=== PATIENT | male | born 1975 | race Caucasian/White ===

== ENCOUNTER 2021-09-05 12:44 | Emergency (ER) | payer BC ==
[~2021-09-05] VITALS: Ht 180.3 cm; Wt 96.2 kg
--- NOTE | 2021-09-05 12:44 | NUR ---
PT BIB SELF C/O LEFT SIDED FLANK PAIN, DARK COLORED URINE NOTED SINCE THIS MORNING. PT IS AAOX4. NOT IN RESPIRATORY DISTRESS, V/S STABLE, KEPT RESTED AND COMFORTABLE. WILL CONTINUE TO MONITOR.
[2021-09-05] MEDS ORDERED: IV NS 0.9% 500 ML BAG IV ONE (13:00)
[2021-09-05] MEDS ORDERED: KETOROLAC TROMETHAMINE INJ 30 MG/ML VIAL IV ONE (13:00)
--- NOTE | 2021-09-05 13:00 | NUR ---
IV LINE ESTABLISHED BLOOD DRAWN AND SENT TO LAB.
[2021-09-05] MEDS ORDERED: KETOROLAC TROMETHAMINE 15 MG/ML VIAL ONE (13:02)
--- NOTE | 2021-09-05 13:06 | NUR ---
PT IS WHEELED TO CT SCAN VIA WHEELCHAIR.
[2021-09-05 13:26] LABS: BASOPHILS % (AUTO) 0.2 % (0.0-2.0); EOSINOPHILS % (AUTO) 0.8 % (0.0-6.0); HEMATOCRIT 40 % (39-51); HEMOGLOBIN 13.4 g/dL (13.5-17.5); LYMPHOCYTES # (AUTO) 1.1 K/uL (0.8-4.8); LYMPHOCYTES % (AUTO) 9.9 % (20.0-44.0); MEAN CORPUSCULAR HGB CONC 34 g/dl (31.0-36.0); MEAN CORPUSCULAR VOLUME 100 fL (80-96); MONOCYTES # (AUTO) 0.8 K/uL (0.1-1.30); MONOCYTES % (AUTO) 6.6 % (2.0-12.0); NEUTROPHILS # (AUTO) 9.3 K/uL (1.8-8.9); NEUTROPHILS % (AUTO) 82.5 % (43.0-81.0); PLATELET COUNT (AUTO) 272 K/uL (150-450); RED BLOOD CELL COUNT(AUTO) 3.97 MIL/uL (4.5-6.0); WHITE BLOOD COUNT (AUTO) 11.3 K/uL (4.3-11.0)
[2021-09-05 13:45] LABS: ALBUMIN 3.8 g/dL (3.4-5.0); BILIRUBIN,DIRECT 0.2 mg/dL (0.0-0.2); BILIRUBIN,TOTAL 1.3 mg/dL (0.2-1.0); CALCIUM, SERUM 8.5 mg/dL (8.5-10.1); POTASSIUM 3.7 mmol/L (3.5-5.1); TOTAL PROTEIN, SERUM 7.7 g/dL (6.4-8.2)
[2021-09-05] MEDS ORDERED: TAMS-12 PO (13:55)
[2021-09-05] MEDS ORDERED: IBUP-1955 PO (13:55)
--- NOTE | 2021-09-05 14:30 | NUR ---
IV removed. Catheter intact and site benign. Pressure and 4x4 applied to site. No bleeding noted. Patient discharged to home in stable condition. Written and verbal after care instructions given. Patient verbalizes understanding of instruction.
[2021-09-05 14:31] VITALS: BP 131/82
== END 2021-09-05 14:31 | disposition home or self-care (01) ==
LOC: ER 12:49
DX: N13.2 Hydronephrosis with renal and ureteral calculous obstruction (principal); Z88.0 Allergy status to penicillin
CPT/HCPCS: 36415; 74176; 80048; 80076; 83690; 85025; 96374; 99284; J1885; J7040; J7030

== ENCOUNTER 2021-11-24 22:34 | Emergency (ER) | payer BC ==
[~2021-11-24] VITALS: Ht 180.3 cm; Wt 86.2 kg
[~2021-11-24 22:34] MED LIST: IBUP-1955 PO; TAMS-12 PO
[2021-11-24] MEDS ORDERED: IV NS 0.9% 1,000 ML BAG IV ONE (23:30)
[2021-11-24] MEDS ORDERED: ONDANSETRON HCL/PF 4 MG/2 ML VIAL IVP ONE (23:30)
[2021-11-24] MEDS ORDERED: KETOROLAC TROMETHAMINE INJ 30 MG/ML VIAL IV ONE (23:30)
[2021-11-24] MEDS ORDERED: KETOROLAC TROMETHAMINE 15 MG/ML VIAL ONE (23:31)
[2021-11-24] MEDS ORDERED: ONDANSETRON HCL/PF 4 MG/2 ML VIAL ONE (23:31)
--- NOTE | 2021-11-24 23:35 | NUR ---
BIBS FOR C/O WORSENING L FLANK PAIN x3 DAYS. REPORTS HX OF L RENAL STONES A FEW MONTHS PRIOR. -N/V. PT AWAKE AND ALERT X4 AMBULATORY WITH STEADY GAIT BREATHING EVEN AND UNLABORED. CHANGED INTO GOWN AND PLACED ON MONITOR AND V/S WNL.
--- NOTE | 2021-11-24 23:40 | NUR ---
URINE COLLECTED AND SENT TO LAB
--- NOTE | 2021-11-24 23:48 | NUR ---
RAC #[id number] S/L; BLOOD COLLECTED AND SENT TO LAB
[2021-11-24 23:51] LABS: BASOPHILS % (AUTO) 0.7 % (0.0-2.0); EOSINOPHILS % (AUTO) 6.5 % (0.0-6.0); HEMATOCRIT 37 % (39-51); HEMOGLOBIN 12.8 g/dL (13.5-17.5); LYMPHOCYTES # (AUTO) 2.1 K/uL (0.8-4.8); LYMPHOCYTES % (AUTO) 36.8 % (20.0-44.0); MEAN CORPUSCULAR HGB CONC 35 g/dl (31.0-36.0); MEAN CORPUSCULAR VOLUME 100 fL (80-96); MONOCYTES # (AUTO) 0.6 K/uL (0.1-1.30); MONOCYTES % (AUTO) 10.2 % (2.0-12.0); NEUTROPHILS # (AUTO) 2.7 K/uL (1.8-8.9); NEUTROPHILS % (AUTO) 45.8 % (43.0-81.0); PLATELET COUNT (AUTO) 249 K/uL (150-450); RED BLOOD CELL COUNT(AUTO) 3.69 MIL/uL (4.5-6.0); WHITE BLOOD COUNT (AUTO) 5.8 K/uL (4.3-11.0)
[2021-11-24 23:57] LABS: BILIRUBIN,URINE NEGATIVE (NEGATIVE); COLOR,URINE YELLOW (YELLOW); LEUKOCYTE ESTERASE ,URINE NEGATIVE (NEGATIVE); NITRITE, URINE NEGATIVE (NEGATIVE); PROTEIN,URINE 30 mg/dl (NEGATIVE); UGLUCOSE NEGATIVE (NEGATIVE); UROBILINOGEN,URINE 0.2 EU/dL (0.2)
[2021-11-25] MEDS ORDERED: IV NS 0.9% 250 ML IV ONE (00:05)
[2021-11-25] MEDS ORDERED: IOHEXOL-300 100 ML VIAL IV ONE (00:05)
[2021-11-25 00:10] LABS: CALCIUM, SERUM 8.7 mg/dL (8.5-10.1); CREATININE 1.1 mg/dL (0.6-1.3); POTASSIUM 3.5 mmol/L (3.5-5.1)
[2021-11-25 00:11] LABS: ALBUMIN 3.9 g/dL (3.4-5.0); BILIRUBIN,DIRECT 0.2 mg/dL (0.0-0.2); TOTAL PROTEIN, SERUM 7.8 g/dL (6.4-8.2)
--- NOTE | 2021-11-25 00:30 | NUR ---
PT TAKEN TO CT VIA STACE[facility]
--- NOTE | 2021-11-25 01:50 | NUR ---
MEDEICALLY STABLE FOR D/C PER MD. IV removed. Catheter intact and site benign. Pressure and 4x4 applied to site. No bleeding noted.Patient discharged to home in stable condition. Written and verbal after care instructions given. Patient verbalizes understanding of instruction.
[2021-11-25 02:09] VITALS: BP 137/83
[2021-11-25 07:44] LABS: BACTERIA,URINE Rare /HPF (None Seen); RBC,URINE 0-2 /HPF (0-2); WBC,URINE 0-2 /HPF (0-3)
[2021-11-25 07:45] LABS: SQUAMOUS EPITHELIAL CELL,UR Few /HPF (None Seen); URINE AMORPHOUS URATE Moderate /HPF (None Seen)
== END 2021-11-25 01:50 | disposition admitted as inpatient to this hospital (09) ==
LOC: ER 22:37
DX: M54.50 Low back pain, unspecified (principal); M10.9 Gout, unspecified; Z88.0 Allergy status to penicillin
CPT/HCPCS: 36415; 74177; 80048; 80076; 81001; 83690; 85025; 96361; 96374; 96375; 99285; J1885; J2405; J7030; J7050; Q9967

== ENCOUNTER 2021-12-04 11:14 | Emergency (ER) | payer BC ==
[~2021-12-04] VITALS: Ht 180.3 cm; Wt 86.2 kg
--- NOTE | 2021-12-04 11:37 | NUR ---
low back pain x 7 days; no fall or trauma
[2021-12-04] MEDS ORDERED: HYDROCODONE/APAP 10/325MG TABLET ONE (12:07)
[2021-12-04] MEDS ORDERED: KETOROLAC TROMETHAMINE INJ 30 MG/ML VIAL ONE (12:07)
[2021-12-04] MEDS: KETOROLAC TROMETHAMINE INJ 60 MG/2 ML VIAL IM ONE (12:20)
[2021-12-04] MEDS: HYDROCODONE/APAP 10/325MG TABLET PO ONE (12:21)
[2021-12-04] MEDS ORDERED: NAPR-1164 PO (13:16)
[2021-12-04] MEDS ORDERED: CYCL10TA9 PO (13:16)
--- NOTE | 2021-12-04 13:23 | NUR ---
Patient discharged to home in stable condition. Written and verbal after care instructions given. Patient verbalizes understanding of instruction.
[2021-12-04 13:24] VITALS: BP 138/91
== END 2021-12-04 13:24 | disposition home or self-care (01) ==
LOC: EDUNIT# 11:14 → ER 11:21
DX: M54.50 Low back pain, unspecified (principal); M10.9 Gout, unspecified; Z88.0 Allergy status to penicillin
CPT/HCPCS: 96372; 99283; J1885

== ENCOUNTER 2022-07-20 09:29 | Emergency (ER) | payer BC ==
[~2022-07-20] VITALS: Ht 177.8 cm; Wt 83.9 kg
[~2022-07-20 09:29] MED LIST changes: +CYCL10TA9 PO; +NAPR-1164 PO
[2022-07-20 09:38] VITALS: BP 173/102
[2022-07-20] MEDS ORDERED: KETOROLAC TROMETHAMINE INJ 30 MG/ML VIAL ONE (09:56)
[2022-07-20] MEDS ORDERED: KETOROLAC TROMETHAMINE INJ 60 MG/2 ML VIAL IM ONE (10:00)
== END 2022-07-20 10:25 | disposition home or self-care (01) ==
LOC: ER 09:36
DX: M10.9 Gout, unspecified (principal); Z87.39 Personal history of other diseases of the musculoskeletal system and connective tissue; Z88.0 Allergy status to penicillin; Z79.899 Other long term (current) drug therapy
CPT/HCPCS: 99283; 96372; J1885

== ENCOUNTER 2022-08-23 19:36 | Emergency (ER) | payer BC ==
[~2022-08-23] VITALS: Ht 180.3 cm; Wt 88.5 kg
[2022-08-23] MEDS ORDERED: KETOROLAC TROMETHAMINE INJ 30 MG/ML VIAL ONE (20:54)
[2022-08-23] MEDS ORDERED: HYDROCODONE/APAP 10/325MG TABLET ONE (20:54)
[2022-08-23] MEDS ORDERED: KETOROLAC TROMETHAMINE INJ 60 MG/2 ML VIAL IM ONE (21:00)
[2022-08-23] MEDS ORDERED: HYDROCODONE/APAP 10/325MG TABLET PO ONE (21:00)
[2022-08-23] MEDS ORDERED: IBUP-1955 PO (22:24)
[2022-08-23] MEDS ORDERED: LIDO30AD10 TP (22:24)
[2022-08-23] MEDS ORDERED: HYDR-3980 PO (22:24)
[2022-08-23] MEDS ORDERED: HYDROMORPHONE 1 MG/1 ML DISP.SYRIN IM ONE (22:30)
[2022-08-23] MEDS ORDERED: HYDROMORPHONE 1 MG/1 ML DISP.SYRIN ONE (22:31)
[2022-08-23 22:53] VITALS: BP 132/78
== END 2022-08-23 22:53 | disposition home or self-care (01) ==
LOC: ER 19:38
DX: S60.212A Contusion of left wrist, initial encounter (principal); S20.212A Contusion of left front wall of thorax, initial encounter; Z88.0 Allergy status to penicillin; Z79.899 Other long term (current) drug therapy; W01.0XXA Fall on same level from slipping, tripping and stumbling without subsequent striking against object, initial encounter; Y93.89 Activity, other specified; Y92.89 Other specified places as the place of occurrence of the external cause; Y99.8 Other external cause status
CPT/HCPCS: 99284; 96372 ×2; 71100; 73110; J1885; J1170

== ENCOUNTER 2022-08-27 18:51 | Emergency (ER) | payer BC ==
[~2022-08-27] VITALS: Ht 180.3 cm; Wt 86.2 kg
[~2022-08-27 18:51] MED LIST changes: +HYDR-3980 PO; +LIDO30AD10 TP
[2022-08-27 20:17] VITALS: BP 176/81
[2022-08-27] MEDS ORDERED: KETOROLAC TROMETHAMINE INJ 60 MG/2 ML VIAL IM ONE ×2 (21:00→21:05)
[2022-08-27] MEDS ORDERED: HYDR-3972 PO (21:57)
== END 2022-08-27 22:08 | disposition home or self-care (01) ==
LOC: ER 18:52
DX: S22.42XA Multiple fractures of ribs, left side, initial encounter for closed fracture (principal); Z88.0 Allergy status to penicillin; Z79.1 Long term (current) use of non-steroidal anti-inflammatories (NSAID); Z79.899 Other long term (current) drug therapy; W01.0XXA Fall on same level from slipping, tripping and stumbling without subsequent striking against object, initial encounter; Y93.89 Activity, other specified; Y92.89 Other specified places as the place of occurrence of the external cause; Y99.8 Other external cause status
CPT/HCPCS: 99285; 71250; 96372; J1885

== ENCOUNTER 2022-09-09 16:45 | Emergency (ER) | payer BC ==
[~2022-09-09] VITALS: Ht 154.9 cm; Wt 83.9 kg
[~2022-09-09 16:45] MED LIST changes: +HYDR-3972 PO
[2022-09-09] MEDS ORDERED: HYDROCODONE/APAP 5/325MG TABLET ONE (17:29)
[2022-09-09] MEDS ORDERED: HYDROCODONE/APAP 5/325MG TABLET PO ONE (17:30)
--- NOTE | 2022-09-09 17:48 | NUR ---
BIB [facility] CHEST PAIN 03/25, WITH HEMOPTYSIS TODAY. CLAIMED HE HAD FRACTURED RIBS LEFT SIDE TWO WEEKS AGO DX AT [facility] DUE TO STAIR FALL.. PT IN PAIN DISTRESS NOT IN RESPIRATORY DISTRESS. PT SEEN BY [facility]. NURSING CARE AND NURSING PLAN CARRIED OUT
--- NOTE | 2022-09-09 17:52 | NUR ---
PT TO CT SCAN VIA WHEEL CHAIR PUSHED BY GRIEVANCE COORDINATOR
--- NOTE | 2022-09-09 17:56 | NUR ---
PT BACK FROM CT HOOKED TO ER MONITOR NURSING CARE CONTINUED
--- NOTE | 2022-09-09 18:05 | NUR ---
Audrey hammer in ED - 09/09/22 at 1815 by ALE PT BACK FROM CT HOOKED TO BP AND O2SAT MONITOR
[2022-09-09] MEDS ORDERED: HYDR-4209 PO (18:51)
[2022-09-09] MEDS ORDERED: ONDANSETRON 4 MG TAB.RAPDIS SL ONE (19:00)
[2022-09-09] MEDS ORDERED: HYDROMORPHONE 1 MG/1 ML DISP.SYRIN IM ONE (19:00)
[2022-09-09] MEDS ORDERED: ONDANSETRON 4 MG TAB.RAPDIS ONE (19:19)
[2022-09-09] MEDS ORDERED: HYDROMORPHONE 1 MG/1 ML DISP.SYRIN ONE (19:21)
--- NOTE | 2022-09-09 20:42 | NUR ---
Patient discharged to home in stable condition. Written and verbal after care instructions given. Patient verbalizes understanding of instruction.
[2022-09-09 20:43] VITALS: BP 134/75
== END 2022-09-09 20:43 | disposition home or self-care (01) ==
LOC: ER 16:45
DX: S22.42XD Multiple fractures of ribs, left side, subsequent encounter for fracture with routine healing (principal); Z87.39 Personal history of other diseases of the musculoskeletal system and connective tissue; Z88.0 Allergy status to penicillin; Z79.899 Other long term (current) drug therapy; W10.9XXD Fall (on) (from) unspecified stairs and steps, subsequent encounter
CPT/HCPCS: 99285; 71250; 96372; Q0162; J1170

== ENCOUNTER 2022-10-03 07:29 | Emergency (ER) | payer BC ==
[~2022-10-03] VITALS: Ht 180.3 cm; Wt 86.2 kg
[~2022-10-03 07:29] MED LIST changes: +HYDR-4209 PO
--- NOTE | 2022-10-03 07:29 | NUR ---
BIBS STATING THAT HE'S AN ALCOHOLIC AND GOING THROUGH WITHDRAWALS LAST DRINK "SEVERAL HOURS AGO" UNABLE TO RECALL HOW MUCH HE DRANK. AWAITING MD LUCIANO.
--- NOTE | 2022-10-03 07:46 | NUR ---
pt cc alc drinking spree last night have mweird feeling about his body.
--- NOTE | 2022-10-03 07:56 | NUR ---
emd at bedside for eval. PT PUT ON MONITOR AND PULSE
[2022-10-03] MEDS ORDERED: ONDA4TAB5 PO (08:09)
[2022-10-03] MEDS ORDERED: CHLO25CA22 PO (08:09)
[2022-10-03 08:19] VITALS: BP 158/80
== END 2022-10-03 08:20 | disposition home or self-care (01) ==
LOC: ER 07:37
DX: F10.239 Alcohol dependence with withdrawal, unspecified (principal); Z87.442 Personal history of urinary calculi; Z88.0 Allergy status to penicillin; Z79.899 Other long term (current) drug therapy; Y90.9 Presence of alcohol in blood, level not specified

== ENCOUNTER 2023-04-01 20:28 | Emergency (ER) | payer BC ==
[~2023-04-01] VITALS: Ht 180.3 cm; Wt 95.3 kg
[~2023-04-01 20:28] MED LIST changes: +CHLO25CA22 PO; +ONDA4TAB5 PO
[2023-04-01 21:40] VITALS: BP 151/101; TEMP 98.2
[2023-04-01] MEDS ORDERED: ACETAMINOPHEN ES 500 MG TABLET PO ONE (22:30)
[2023-04-01] MEDS ORDERED: ACETAMINOPHEN ES 500 MG TABLET ONE (23:05)
[2023-04-02] MEDS ORDERED: NAPR-1009 PO (00:03)
[2023-04-02 00:37] VITALS: O2SAT 98
== END 2023-04-02 00:39 | disposition home or self-care (01) ==
LOC: ER 20:29
DX: M17.0 Bilateral primary osteoarthritis of knee (principal); K74.60 Unspecified cirrhosis of liver; Z79.899 Other long term (current) drug therapy; Z88.0 Allergy status to penicillin
CPT/HCPCS: 73610-TC

== ENCOUNTER 2023-10-30 20:44 | Emergency (ER) | payer BC ==
[~2023-10-30] VITALS: Ht 180.3 cm; Wt 95.3 kg
[~2023-10-30 20:44] MED LIST changes: +NAPR-1009 PO
[2023-10-30 21:28] VITALS: TEMP 98.1
[2023-10-30] MEDS ORDERED: ACETAMINOPHEN ES 500 MG TABLET ONE (21:57)
[2023-10-30] MEDS ORDERED: CYCLOBENZAPRINE 10 MG TABLET ONE (21:58)
[2023-10-30] MEDS ORDERED: IBUPROFEN 600 MG TABLET ONE (21:58)
[2023-10-30] MEDS: IBUPROFEN 600 MG TABLET PO ONE (22:11)
[2023-10-30] MEDS: ACETAMINOPHEN ES 500 MG TABLET PO ONE (22:11)
[2023-10-30] MEDS: CYCLOBENZAPRINE 10 MG TABLET PO ONE (22:11)
[2023-10-30] MEDS ORDERED: ACET-2605 PO (23:28)
[2023-10-30] MEDS ORDERED: IBUP-1955 PO (23:28)
[2023-10-30] MEDS ORDERED: CYCL10TA9 PO (23:28)
[2023-10-30] MEDS: LIDOCAINE 5% (PATCH) 1 EA PATCH TP ONE (23:42)
[2023-10-30 23:43] VITALS: BP 131/84; O2SAT 95
== END 2023-10-30 23:43 | disposition home or self-care (01) ==
LOC: ER 20:45
DX: M54.50 Low back pain, unspecified (principal); Z87.442 Personal history of urinary calculi; Z88.0 Allergy status to penicillin; Z79.899 Other long term (current) drug therapy; V49.9XXA Car occupant (driver) (passenger) injured in unspecified traffic accident, initial encounter; Y93.89 Activity, other specified; Y92.89 Other specified places as the place of occurrence of the external cause; Y99.8 Other external cause status
CPT/HCPCS: 72131-TC

== ENCOUNTER 2025-06-11 17:23 | Emergency (ER) | payer BC, OTHER ==
[~2025-06-11] VITALS: Ht 180.3 cm; Wt 95.3 kg
[~2025-06-11 17:23] MED LIST changes: +ACET-2605 PO
[2025-06-11] MEDS ORDERED: KETOROLAC TROMETHAMINE 15 MG/ML VIAL ONE (19:13)
[2025-06-11] MEDS ORDERED: ONDANSETRON 4 MG TAB.RAPDIS ONE (19:13)
[2025-06-11] MEDS: ONDANSETRON 4 MG TAB.RAPDIS SL ONE (19:15)
[2025-06-11] MEDS: KETOROLAC TROMETHAMINE 15 MG/ML VIAL IM ONE (19:25)
[2025-06-11 19:26] LABS: PLATELET COUNT (AUTO) 308 K/uL (150-450); RED BLOOD CELL COUNT(AUTO) 3.98 MIL/uL (4.5-6.0); RED CELL DISTRIBUTION WIDTH 13.1 % (11.5-15.0); WHITE BLOOD COUNT (AUTO) 8.6 K/uL (4.3-11.0)
[2025-06-11 19:39] LABS: CALCIUM, SERUM 8.6 mg/dL (8.5-10.1); CREATININE 0.9 mg/dL (0.6-1.3); SODIUM SERUM 142.0 mmol/L (136-145); UREA NITROGEN, BLOOD 10.0 mg/dL (7-18)
[2025-06-11] MEDS ORDERED: ONDANSETRON HCL/PF 4 MG/2 ML VIAL ONE (19:45)
[2025-06-11 19:46] LABS: ASPARTATE AMINOTRANSFERASE 23.0 U/L (15-37); TOTAL PROTEIN, SERUM 7.7 g/dL (6.4-8.2)
[2025-06-11] MEDS ORDERED: METOCLOPRAMIDE HCL 10 MG/2 ML VIAL ONE (19:46)
[2025-06-11] MEDS: METOCLOPRAMIDE HCL 10 MG/2 ML VIAL IM ONE (19:51)
[2025-06-11 20:53] LABS: APPEARANCE,URINE CLEAR (CLEAR); BLOOD, URINE TRACE-INTA Ery/uL (NEGATIVE); LEUKOCYTE ESTERASE ,URINE NEGATIVE (NEGATIVE); NITRITE, URINE NEGATIVE (NEGATIVE); UGLUCOSE NEGATIVE (NEGATIVE)
[2025-06-11] MEDS ORDERED: DOCU100T2 PO (20:59)
[2025-06-11] MEDS ORDERED: IBUP-1490 PO (20:59)
[2025-06-11] MEDS ORDERED: ACET-2030 PO (20:59)
[2025-06-11 21:08] LABS: ADD URINE CULTURE YES; SQUAMOUS EPITHELIAL CELL,UR 0-2 /HPF (None Seen)
[2025-06-11 21:24] VITALS: BP 124/81; TEMP 98.5; O2SAT 98
== END 2025-06-11 21:27 | disposition home or self-care (01) ==
LOC: ER 17:27
DX: N13.4 Hydroureter (principal); D64.9 Anemia, unspecified; I10 Essential (primary) hypertension; Z87.442 Personal history of urinary calculi; Z88.0 Allergy status to penicillin
CPT/HCPCS: 99285; 74176; 96372 ×2; 85025; 80048; 83690; 80076; 81001; 36415; J1885; J2765; Q0162; 87086-TC; J2405